=== PATIENT | male | born 1955 | race Caucasian/White ===

== ENCOUNTER 2023-02-06 12:53 | Emergency (ER) | payer OTHER ==
--- OUTSIDE RECORDS SUMMARY | 2023-02-06 12:57 | XMS REPORT | Continuity of Care Document ---
:1955 Author Organization [facility] t Address [address] [place] [address] Care Team Providers Name Role Phone Asked, No Pcp Primary Care Physician Unavailable Sveta Moody Attending Clinician Unavailable Allie Ramirez Attending Clinician Unavailable Mayco Kelly Attending Clinician Unavailable Arnoldo BLEDSOE, Vernon Iglesias Attending Clinician Payers Payer Name Policy Type Policy Number Effective Date Expiration Date S velvet [employer] C1 [id number] 2020 [facility] 00:00:00 [facility] Problems Condition Condition Condition Status Onset Resolution Last Treating Co mments Source Name Details Category Date Date Treatment Clinician Date No known No known Disease Metho di active active st problems problems Hospit a l Benign Benign Problem Active Common essential essential Spir [facility] hypertensi hypertensi - [facility] Hyperlipid Hyperlipem Problem Active C ommon aemia [facility] - [facility] Allergies, Adverse Reactions, Alerts This patient has no known allergies or adverse reactions. Social History Social Habit Start Date Stop Date Quantity Comments Source [facility] History of Social 2022-08-06 2022-08-[address] function 00:00:00 00:00:00 Hospital Alcohol intake 2022-08-06 2022-08-06 Current drinker [facility] dist 00:00:00 00:00:00 of alcohol Hospital (finding) Tobacco use and 2022-04-30 2022-04-30 Smokeless [facility] exposure 00:00:00 00:00:00 tobacco non-user Hospital Sex Assigned At [birth year] M [facility] 00:[facility]00 00:00:00 Hospital Smoking Status Start Date Stop Date Source Never smoked tobacco [facility] Medications Ordered Filled Start Stop Current Ordering Indication Dosage Frequency Signature Comments Components Source Medication Medication Date Date Medication? Clinician (SIG) Name Name meloxicam Yes [id number] TAKE 1 M [facility]i (MOBIC) 15 3-13 TABLET (15 st mg tablet 00:00: MG TOTAL) Hos justyn 00 BY MOUTH l DAILY aspirin Yes 81mg QD Take 1 [facility] (ECOTRIN) 1-16 tablet (81 st 81 MG 07:51: mg total) Hospita enteric 54 by mouth l coated daily. tablet aspirin Yes 81mg QD Take 1 [facility] (ECOTRIN) 1-16 tablet (81 st 81 MG 07:51: mg total) [facility]ospita enteric 54 by mouth l coated daily. tablet meloxicam 2022- No [id number] 15mg QD Take 1 [facility] (Mobic) 15 1-16 03-18 tablet (15 st mg tablet 00:00: 04:59 mg total) Ho spita 00 :00 by mouth l daily for 60 days. meloxicam 2022- No [id number] 15mg QD Take 1 [facility] (Mobic) 15 1-16 03-13 tablet (15 st mg tablet 00:00: 00:00 mg total) [facility] spita 00 :00 by mouth l daily for 60 days. atorvastati Yes 10mg QD Take 1 Meth jessica n (LIPITOR) 1-06 tablet (10 st 10 mg 00:00: mg total) Hospita tablet 00 by mouth l daily. atorvastati 2022-0 Yes 10mg QD Take 1 Meth jessica n (LIPITOR) 1-06 tablet (10 st 10 mg 00:00: mg total) Hospita tablet 00 by mouth l daily. losartan 2021-04 Yes 100mg QD Take 1 Method i (COZAAR) 1-[address] 100 MG 00:00: (100 mg Hospita tablet 00 total) by l mouth daily. losartan 2021-04 Yes 100mg QD Take 1 Method i (COZAAR) 1-[address] 100 MG 00:00: (100 mg Hospita tablet 00 total) by l mouth daily. Krill Oil Krill Oil No Krill Oil 350 MG 350 MG 350 MG Aspir-81 81 Aspir-81 81 No 1{table QD Aspir-81 MG MG t} 81 MG Losartan Losartan No 1{table QD Losartan Potassium Potassium t} Potassium 100 MG 100 MG 100 MG Atorvastati Atorvastati No 1{table QD Atorvastat n Calcium n Calcium t} in Calcium 10 MG 10 MG 10 MG Vitamin C Vitamin C No 1{table QD Vitamin C 1000 MG 1000 MG t} 1000 MG Vitamin C Vitamin C No 1{table QD Vitamin C 1000 MG 1000 MG t} 1000 MG Mens 50+ Mens 50+ No Mens 50+ Advanced - Advanced - Advanced - Krill Oil Krill Oil No Krill Oil 350 MG 350 MG 350 MG Losartan Losartan No 1{table QD Losartan Potassium Potassium t} Potassium 100 MG 100 MG 100 MG Aspir-81 81 Aspir-81 81 No 1{table QD Aspir-81 MG MG t} 81 MG Atorvastati Atorvastati No 1{table QD Atorvastat n Calcium n Calcium t} in Calcium 10 MG 10 MG 10 MG Vitamin C Vitamin C No 1{table QD Vitamin C 1000 MG 1000 MG t} 1000 MG Mens 50+ Mens 50+ No Mens 50+ Advanced - Advanced - Advanced - Krill Oil Krill Oil No Krill Oil 350 MG 350 MG 350 MG Losartan Losartan No 1{table QD Losartan Potassium Potassium t} Potassium 100 MG 100 MG 100 MG Aspir-81 81 Aspir-81 81 No 1{table QD Aspir-81 MG MG t} 81 MG Atorvastati Atorvastati No 1{table QD Atorvastat n Calcium n Calcium t} in Calcium 10 MG 10 MG 10 MG Vital Signs Vital Name Observation Time Observation Value Comments Source height 2021-08-04 16:00:00 72.00 [in_i] [facility] weight 2021-08-04 16:00:00 289.6 [lb_av] Common [facility] temperature 2021-08-04 16:00:00 97.3 [facility]degF[facility] bmi 2021-08-04 16:00:00 39.27 kg/m2 [facility] oximetry 2021-08-04 16:00:00 96 % [facility] respiratory rate 2021-08-04 16:00:00 18 /min Comm on [facility] blood pressure 2021-08-04 16:00:00 131 mm[Hg] [facility] - systolic [facility] blood pressure 2021-08-04 16:00:00 83 mm[Hg] [facility] - diastolic [facility] height 2021-01-27 15:20:00 72.00 [in_i] [facility] weight 2021-01-27 15:20:00 288.0 [lb_av] [facility] temperature 2021-01-27 15:20:00 97.2 [degF] [facility] bmi 2021-01-27 15:20:00 39.06 kg/m2 [facility] oximetry 2021-01-27 15:20:00 95 % [facility] respiratory rate 2021-01-27 15:20:00 18 /min Comm on [facility] blood pressure 2021-01-27 15:20:00 130 mm[Hg] [facility] systolic [facility] blood pressure 2021-01-27 15:20:00 80 mm[Hg] [facility] diastolic [facility] Body height 2022-08-06 18:18:00 182.9 cm [facility] Body weight 2022-08-06 18:18:00 127.914 kg [facility] BMI 2022-08-06 18:18:00 38.25 kg/m2 [facility] Body height 2022-04-30 13:51:00 182.9 cm [facility] Body weight 2022-04-30 13:51:00 128.822 kg [facility] BMI 2022-04-30 13:51:00 38.52 kg/m2 [facility] Procedures Procedure Date / Time Performing Clinician Source Performed XR KNEE 4+ VW LEFT 2022-08-06 18:26:11 Vernon Mclaughlin [facility] MT ARTHROCENTESIS 2022-08-06 18:20:00 Cornelius [facility] ASPIR&/INJ MAJOR JT/BURSA Sen W/O US MT ARTHROCENTESIS 2022-04-30 14:00:00 [facility] ASPIR&/INJ MAJOR JT/BURSA Sen W/O US XR KNEE 4+ VW RIGHT 2022-04-30 13:52:11 [facility] Planned Activity Planned Date Details Comments Source Future Scheduled 2023-01-30 Screening for [facility] Test 17:34:31 malignant neoplasm of colon (procedure) [code = 573170678] Future Scheduled 2023-01-30 Screening for [facility] Test 17:34:31 malignant neoplasm of colon (procedure) [code = 860435419] Future Scheduled 2023-01-30 Screening for [facility] Test 17:34:31 malignant neoplasm of colon (procedure) [code = 119851107] Future Scheduled 2023-01-30 COVID-19 VACCINE (#1) [facility] Test 17:34:31 [code = COVID-19 VACCINE (#1)] Future Scheduled 2023-01-30 Hepatitis C screening [facility] Test 17:34:31 (procedure) [code = 696276777] Future Scheduled 2023-01-30 Screening for [facility] Test 17:34:31 malignant neoplasm of colon (procedure) [code = 669959756] Future Scheduled 2023-01-30 Screening for [facility] Test 17:34:31 malignant neoplasm of colon (procedure) [code = 928636618] Future Scheduled 2023-01-30 SHINGLES VACCINES (1 Met [facility] Test 17:34:31 of 2) [code = SHINGLES VACCINES (1 of 2)] Future Scheduled 2023-01-30 RSV VACCINES > 60 YR [facility] Test 17:34:31 (1 - 1-dose 60+ series) [code = RSV VACCINES > 60 YR (1 - 1-dose 60+ series)] Future Scheduled 2023-01-30 65+ PNEUMOCOCCAL [facility] Test 17:34:31 VACCINE (1 - PCV) [code = 65+ PNEUMOCOCCAL VACCINE (1 - PCV)] Future Scheduled 2023-01-30 [facility]FLUENZA [facility]ACCINE (#[facility]) [facility] 17:34:31 [code = INFLUENZA VACCINE (#1)] Future Scheduled 2022-04-30 COVID-19 VACCINE (#1) [facility] Test 08:14:35 [code = COVID-19 VACCINE (#1)] Future Scheduled 2022-04-[address] [facility] Test 08:14:35 (procedure) [code = 397455913] Future Scheduled 2022-04-[address] [facility] Test 08:14:35 [code = COLONOSCOPY SCREENING] Future Scheduled 2022-04-30 SHINGLES VACCINES (1 [facility] Test 08:14:35 of 2) [code = SHINGLES VACCINES (1 of 2)] Future Scheduled 2022-04-30 65+ [facility]OCOCCAL [facility] Test 08:14:35 VACCINE (1 - PCV) [code = 65+ PNEUMOCOCCAL VACCINE (1 - PCV)] Future Scheduled 2022-04-30 [facility]ENZA [facility]ACCINE [facility] Test 08:14:35 [code = INFLUENZA VACCINE] Encounters Start End Encounter Admission Attending Care Care Encounter Source Date/Time Date/Time Type Type Clinicians Facility Department ID 2023-01-23 Outpatient Moody, [facility] [id number] Common 11:11:00 Sveta [address] [facility] 2021-08-02 [facility] [id number] 2 Common 13:27:04 [id number] [facility] 2021-05-10 Outpatient Ramirez, Na [facility] [id number] 2 Common 13:59:56 [id number] [facility] 2021-05-10 Outpatient Kelly, [facility] [id number] Common 12:38:43 [facility]ly [facility] [id number] [facility] 2021-05-10 [facility] [id number] Common 12:38:03 [facility]ly [facility] [id number] [facility] 2022-08-06 2022-08-06 Office Arnoldo, 1.2.840.1 [id number] Method[facility] 13:20:00 13:56:12 Visit Vernon Harris 24738.1.1 260 s t 3.430.2.7 Hospit a .3.367361 l .8 2022-08-06 2022-08-06 Travel 1.2.840.1 1.2.701.334 [id number] [facility] 00:00:00 00:00:[address] 3.430.2.7 0.2.7.3.698 Ho spita .3.449524 084.8 l .8 2022-08-06 2022-08-06 Outpatient [facility]DO [facility] [id number] [place] 00:00:00 00:00:00 VERNON [address] 2022-08-06 2022-08-06 Outpatient [facility]OLDO [facility] [id number] [place] 00:00:00 00:00:00 VERNON [address] 2022-06-24 2022-06-24 Refill Arnoldo, 1.2.840.1 [id number] [facility] 00:00:00 00:00:00 Vernon Harris 98062.1.1 536 s t 3.430.2.7 Hospit a .3.301916 l .8 2022-04-30 2022-04-30 Office Arnoldo, 1.2.840.1 [id number] [facility] 08:00:00 08:15:25 Visit Vernon Iglesias 82116.1.1 587 s t 3.430.2.7 Hospit a .3.854413 l .8 2022-04-30 2022-04-30 Office Arnoldo, 1.2.840.1 [id number] [facility] 08:00:00 08:15:25 Visit Vernon Iglesias 93196.1.1 587 s t 3.430.2.7 Hospit a .3.864100 l .8 2022-04-30 2022-04-30 Travel 1.2.840.1 1.2.233.875 [id number] [facility] 00:00:00 00:00:[address] 3.430.2.7 0.2.7.3.698 Ho spita .3.332130 084.8 l .8 2022-04-30 2022-04-30 [facility] [id number] [place] 00:00:00 00:00:[address] VERNON [address] 2022-04-30 2022-04-30 Travel 1.2.840.1 1.2.614.465 [id number] [facility] 00:00:00 00:00:[address] 3.430.2.7 0.2.7.3.698 Ho spita .3.943868 084.8 l .8 2021-09-08 2021-09-08 (TEL) [facility] [id number] Co mmon 00:00:00 00:00:00 [facility] 2021-08-04 2021-08-04 OFFICE STLMLC ST[facility] [id number] Co mmon 00:00:00 00:00:00 VISIT EST Spir it PT LEVEL 3 - [facility] 2021-01-27 2021-01-27 PREV VISIT STLMLC STL[facility] [id number] Common 00:00:00 00:00:00 EST AGE [facility] 40-64 - [facility] 2020-06-22 2020-06-22 Outpatient [facility] [id number] Common 00:00:00 00:00:00 [facility] 2020-06-21 2020-06-21 Outpatient STL[facility] [id number] Common 00:00:00 00:00:00 [facility] Results This patient has no known results.
[2023-02-06] MEDS ORDERED: NA CHLORIDE 0.9% 1,000 ML ONE (13:34)
[2023-02-06] MEDS ORDERED: TDAP (DIPHTH,PERTUSS(ACELL),TET VAC) 0.5 ML VIAL IMVAC ONE (13:34)
[2023-02-06] MEDS ORDERED: FENTANYL CITR 100 MCG/2 ML ONE (13:34)
[2023-02-06] MEDS ORDERED: ONDANSETRON 4 MG/2 ML VIAL ONE (13:34)
[2023-02-06 13:35] LABS: Absolute Lymphocytes (CBC) 2.5 K/uL (0.7-4.9); Hematocrit 48.4 % (39.6-49.0); Lymphocytes % 26.1 % (15.3-44.8); MPV 9.1 fL (7.6-11.3); Platelets 163 thou/uL (152-406); RBC Red Blood Cell Count 5.15 M/uL (4.33-5.43)
[2023-02-06 13:48] LABS: Bilirubin Direct 0.1 mg/dL (0-0.2); Bilirubin Indirect, Calculated 0.4 mg/dL (0.2-0.8); Bilirubin Total 0.5 mg/dL (0.2-1.0); Potassium 4.7 mEq/L (3.5-5.1); Protein, Total 7.7 g/dL (6.4-8.2)
[2023-02-06] MEDS ORDERED: BACI/NEOMYCIN/POLY OINT 15GM TOP ONE (13:49)
[2023-02-06] MEDS ORDERED: DIAZEPAM 5 MG TABLET ONE (13:55)
[2023-02-06 14:03] LABS: Calcium Oxalate Crystals- Ur Few /HPF (None Seen); Specific Gravity 1.027 (1.005-1.030); Urine Bacteria <20 /HPF (<20); Urine Bilirubin NEGATIVE (Negative); Urine Blood Negative (Negative); Urine Clarity Turbid (Clear); Urine Color Yellow (Yellow); Urine Glucose NEGATIVE (Negative); Urine Mucus Slight /HPF (None Seen); Urine Protein TRACE (Negative); Urine Urobilinogen Normal (Normal); Urine pH 5.5 (5.0-7.0)
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
--- NOTE | 2023-02-06 14:46 | RAD REPORT ---
EXAM DESCRIPTION: RAD - Shoulder Left 2 View - 02/06/2023 1:36 pm CLINICAL HISTORY: PAIN COMPARISON: Head C Spine Cap W Con dated 02/06/2023 FINDINGS: Mild AC joint and glenohumeral joint arthritic changes are present. No acute fracture or d islocation seen.
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
[2023-02-06] MEDS ORDERED: KETOROLAC 30 MG/ML INJ ONE (15:15)
[2023-02-07 15:57] VITALS: BP 133/63; TEMP 97.3; O2SAT 100
== END 2023-02-06 15:41 | disposition home or self-care (01) ==
LOC: ER 12:53
DX: S22.32XA Fracture of one rib, left side, initial encounter for closed fracture (principal); S29.012A Strain of muscle and tendon of back wall of thorax, initial encounter; S29.011A Strain of muscle and tendon of front wall of thorax, initial encounter; S40.212A Abrasion of left shoulder, initial encounter; S30.1XXA Contusion of abdominal wall, initial encounter; S40.012A Contusion of left shoulder, initial encounter; V49.49XA Driver injured in collision with other motor vehicles in traffic accident, initial encounter; Z23 Encounter for immunization; I10 Essential (primary) hypertension
CPT/HCPCS: 85025; 81001; 80048; 36415; 86900; 86850; 86901; 80076; 83690; 70450; 72125; 71260; 74177; 73030; Q9967; J3010; J2405; J7030

== ENCOUNTER 2024-07-31 07:43 | Day surgery (SDC) | payer OTHER ==
[2024-07-28 10:14] LABS: Absolute Basophils 0.1 K/uL (0-0.5); Absolute Eosinophils 0.2 K/uL (0-0.5); Absolute Lymphocytes (CBC) 2.7 K/uL (0.7-4.9); Absolute Monocytes 0.8 K/uL (0.1-1.3); Absolute Neutrophil 4.7 K/uL (1.8-8.0); Basophils % 0.8 % (0-1.3); Eosinophils % 2.8 % (0-4.4); Hematocrit 46.9 % (39.6-49.0); Hemoglobin 16.2 g/dL (13.6-17.9); Lymphocytes % 31.7 % (15.3-44.8); MCH 31.9 pg (27.0-35.0); MCHC 34.6 g/dL (32.0-36.0); MCV 92.4 fL (80-100); MPV 9.5 fL (7.6-11.3); Monocytes % 9.6 % (3.3-12.3); Neutrophils % 55.1 % (41.7-73.7); Nucleated Red Blood Cells % 0.1 % (0-0); Platelets 168 thou/uL (152-406); RBC Red Blood Cell Count 5.08 M/uL (4.33-5.43); Red Cell Distribution Width 13.6 % (12.1-15.2)
[2024-07-28 10:28] LABS: Anion Gap 6.7 mEq/L (5.0-15.0); Potassium 4.7 mEq/L (3.5-5.1)
--- NOTE | 2024-07-28 10:43 | RAD REPORT ---
Procedure: Chest Pa And Lat (2 Views) HISTORY: Preop for carpal tunnel surgery. Hypertension COMPARISON: none FINDINGS: The lungs appear clear of acute infiltrate. No significant pleural effusion noted. The heart is normal size. IMPRESSION: No acute abnormality is displayed.
[2024-07-28 11:09] LABS: PT Prothrombin Time 11.6 SECONDS (10-13.0); PTT, Activated Partial Thromb 35.1 SECONDS (27.2-37.4); Protime INR 1.02
[2024-07-31] MEDS: NA CHLORIDE 0.9% 1,000 ML ONE (08:00)
[2024-07-31] MEDS ORDERED: KETOROLAC 30 MG/ML INJ ONE (09:32)
[2024-07-31] MEDS ORDERED: LIDOCAINE 2% MPF 5 ML VIAL ONE (09:32)
[2024-07-31] MEDS ORDERED: ONDANSETRON 4 MG/2 ML VIAL ONE (09:32)
[2024-07-31] MEDS ORDERED: propofoL 200 MG/20 ML VIAL IV ONE (09:32)
[2024-07-31] MEDS ORDERED: dexAMETHasone 10 MG/ML VIAL ONE (09:32)
[2024-07-31] MEDS ORDERED: FENTANYL CITR 100 MCG/2 ML ONE (09:33)
[2024-07-31] MEDS ORDERED: MIDAZOLAM HCL 2 MG/2 ML INJ ONE (09:33)
[2024-07-31] MEDS: CEFAZOLIN SODIUM 2 GM/VIAL ONE (09:39)
[2024-07-31] MEDS: BUPIVACAINE 0.25% PF 10 ML VIAL ONE (10:10)
--- NOTE | 2024-07-31 10:40 | P.BOP ---
Preoperative diagnosis: Right carpal tunnel syndrome Postoperative diagnosis: Same Primary procedure: Right open carpal tunnel release Cam Specialist: NONE,NONE Estimated blood loss: 3 cc Specimen: None Findings: See dictation Anesthesia: General Complications: None Implants: None Fluids & blood products: Per anesthesia record Transferred to: Recovery Room Condition: Good
--- NOTE | 2024-07-31 10:41 | P.OP ---
Preoperative diagnosis: Right carpal tunnel syndrome Postoperative diagnosis: Same Primary procedure: Right open carpal tunnel release Anesthesia: General Estimated blood loss: 3 cc Specimen: None Findings: See dictation Operative Technique: Reason for Surgery: Ryland is a 69 year old male that presented with physical exam findings as well as EMG findings consistent with right carpal tunnel syndrome. I discussed with the patient at length risks and benefits associated with the procedure. He expressed understanding and elected proceed with operative treatment. Description of Procedure: After informed consent was obtained the patient was identified in the preoperative holding area. The right upper extremity was marked patient. Patient then brought back to the operating room transferred the operative table in supine fashion and placed under anesthesia. The right upper extremity was exsanguinated and the tourniquet was inflated to 250 mmHg. Approximately a 3 cm longitudinal incision was made just ulnar to the thenar crease. Dissection was then taken down to the palmar fascia which was identified. A Lengby elevator was then placed just deep to the palmar fascia to protect the median nerve at all times. A 15 blade was then used to release the palmar fascia and transverse carpal ligament leaving the Lengby elevator to protect the nerve at all times. Any remaining fascial bands were then released using a blunt tip Metzenbaum scissor. The tips were him superficially to protect the median nerve at all times. The wound was then irrigated thoroughly with normal saline. The skin was approximated using a 5-0 Prolene. Sterile dressings were applied and patient was awakened and transferred to PACU in stable condition. Postoperative plan: The patient will follow-up in 1 to 2 weeks for wound check and suture removal. He may begin to work on range of motion exercises at this time. Complications: None Implants: None Fluids & blood products: Per anesthesia record Transferred to: Recovery Room Condition: Good
[2024-07-31 12:37] VITALS: BP 120/72; TEMP 97.1; O2SAT 97
== END 2024-07-31 11:50 | disposition home or self-care (01) ==
LOC: OR 07:43
PROVIDERS: ATTEND Orthopaedic Surgery Sports Medicine
PROC: 01N50ZZ Release Median Nerve, Open Approach (ICD-10-PCS; principal; 2024-07-31 09:15)
DX: G56.01 Carpal tunnel syndrome, right upper limb (principal)
CPT/HCPCS: 93005; 85025; 80048; 36415; 85610; 82947 ×2; 85730; 71046; 64721; J2704; J2003; J2250; J3010; J1100; J2405; J7030